=== PATIENT | male | born 1990 | race Caucasian/White ===

== ENCOUNTER 2024-05-01 11:44 | Outpatient (AMB) | payer OTHER, SELFPAY ==
[2024-05-01 11:48] VITALS: BP 124/80; PULSE 48; O2SAT 99; BMI 35.1
--- NOTE | 2024-05-01 11:48 | MHC.PC.OV ---
Vital Signs 05/01/24 11:48 Height 5 ft 9 in Weight 238 lb BMI 35.1 BP 124/80 Blood Pressure Location Lt brachial Position Sitting Pulse 48 L Pulse Source Pulse Oximeter Pulse Oximetry (%) 99 Oxygen Delivery Method Room Air Intake Visit Reasons: Rash Intake Note: Pt is here today for a sick visit. Pt c/o rash on his legs. Pt states that he has been having the rash for a while now and it goes away and comes back. Allergies Penicillins Allergy (Mild, Unverified 05/01/24 12:07) UNK penicillin V Allergy (Unknown, Verified 05/01/24 12:07) angioedema seafood/shellfish Allergy (Unknown, Uncoded 05/01/24 12:07) angioedema Medication List - Last Reconciled 05/01/24 by Janeth Schwarz MD No Known Home Meds Tobacco use date assessed: 05/01/24 Dental Screening Dental Screen Date: 05/01/24 Did you have a dental visit in the last 12 months?: Yes Did you have a dental problem in the last 6 months where you did not have access to dental care?: No Was dental information given to patient?: Patient has dentist HPI Rash HPI Details Patient presents for physical. He complains of chronic lower extremities rash for years. He was evaluated by machine plaster mixer in the past was prescribed steroids cream. patient reports itchy rash getting worse in the summer. He works for a [employer] but denies using any new chemicals or cosmetics. 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 1. Little interest or pleasure in doing things: nearly every day 2. Feeling down, depressed, or hopeless: more than half the days 3. Trouble falling or staying asleep, or sleeping too much: several days 4. Feeling tired or having little energy: several days 5. Poor appetite or overeating: not at all 6. Feeling bad about yourself - or that you are a failure or have let yourself or your family down: several days 7. Trouble concentrating on things, such as reading the newspaper or watching television: not at all 8. Moving or speaking so slowly that other people could have noticed. Or the opposite - being so fidgety or restless that you have been moving around a lot more than usual: not at all 9. Thoughts that you would be better off or of hurting yourself in some way: several days Total score: 9 Depression Screening Interpretation: Positive (Patient is established with a therapist) Depression Screening Follow-up: Existing condition and In treatment Depression Screening Done: Yes Source: Developed by Drs. Ramón Thornton, Kanwal Marcano, Rome Taylor and colleagues, with an educational wen from [employer]. Thrive Questionnaire Date Thrive assessed: 05/01/24 I am a: Patient What is your living situation today?: I have a steady place to live Within the past 12 months, did the food you bought not last and you didn't have the money to get more?: I choose not to answer this question Within the past 12 months, did you worry whether your food would run out before you got money to buy more?: I choose not to answer this question Do you have trouble paying for medicines?: No Do you have trouble getting transportation to medical appointments?: No Do you have trouble paying your heating and electricity bill?: No Do you have trouble taking care of your child, family member or friend?: No Do you have trouble with day-to-day activities such as bathing, preparing meals, shopping, managing finances, etc.?: No Are you currently unemployed and looking for a job?: No Are you interested in more education?: No Please select the resources that you would like help with: Housing/Prison Currently or been in a relationship where the following occur: No concerns reported THRIVE Score: 0 AUDIT C Alcohol Use Questionnaire (AUDIT-C) 1. How often do you have a drink containing alcohol?: Monthly or less 2. How many drinks containing alcohol do you have on a typical day when you are drinking?: 1 or 2 3. How often do you have six or more drinks on one occasion?: Never Total Score: 1 ALAN-7 AMB Questionnaire ALAN-7 Date ALAN - 7 assessed: 05/01/24 Feeling nervous, anxious, or on edge: 0 = Not at all Not being able to stop or control worryin = Several days Worrying too much about different things: 1 = Several days Trouble relaxin = Several days Being so restless that it is hard to sit still: 0 = Not at all Becoming easily annoyed or irritable: 0 = Not at all Feeling afraid as if something awful might happen: 0 = Not at all Total ALAN-7 score (0-4 normal; 5-9 mild; 10-14 moderate; 15-21 severe): 3 Source: Developed by Drs. Ramón Thornton, Kanwal Marcano, Rome Taylor and colleagues, with an educational wen from [employer]. Review of Systems Const All systems reviewed & are unremarkable except as noted in HPI and below ENT Reports no additional complaints Card Reports no additional complaints Resp Reports no additional complaints GI Reports no additional complaints Reports no additional complaints Physical exam (Primary Care) Vital Signs: Last Vital Signs Pulse 48 L 05/01/24 11:48 BP 124/80 05/01/24 11:48 Pulse Ox 99 05/01/24 11:48 Oxygen Delivery Method Room Air 05/01/24 11:48 BMI result Body Mass Index 35.1 Tobacco/Smoking Status: Tobacco use Status Tobacco use date assessed 05/01/24 05/01/24 12:11 Patient Tobacco Use Status Never used Tobacco 05/01/24 11:48 e-Cigarette/Vaping Use Never Used 05/01/24 11:48 PHQ-9: PHQ-9 Score PHQ-9: Total score 9 05/01/24 13:10 Depression Screening Interpretation: Positive (Patient is established with a therapist) Depression Screening Follow-up: Existing condition and In treatment Thrive Assessment: Date of Thrive Assessment Date Thrive assessed 05/01/24 05/01/24 12:11 Currently or been in a relationship where the following occur: No concerns reported Const General: well developed HENMA Head: Yes normal to inspection Eyes General: appearance normal, both eyes and all related structures Resp Effort & Inspection: normal respiratory effort Auscultation: clear to auscultation bilaterally Cardio Rhythm: regular rhythm Heart sounds: S1 normal heart sound present and S2 normal heart sound present GI Inspection: Yes normal to inspection Palpation (GI): Soft to palpation Percussion: Yes normal to percussion Auscultation: normal bowel sounds Extrem Other: There is erythematous papular rash on both lower extremities with scarring and excoriation moore. Assessment and Plan Assessment & Plan (1) Eczema: Code(s): L30.9 - Dermatitis, unspecified Plan: Prednisone taper is prescribed patient was advised to start Zyrtec and will be referred to machine plaster mixer for evaluation (2) Annual physical exam: Code(s): Z00.00 - Encounter for general adult medical examination without abnormal findings Plan: Well-balanced diet regular physical activity discussed with the patient return for fasting blood work Orders: Orders Comprehensive [place]. Panel Fast Today L30.9 - Dermatitis, unspecified, Z00.00 - Encounter for general adult medical examination without abnormal findings Lipid Panel Today L30.9 - Dermatitis, unspecified, Z00.00 - Encounter for general adult medical examination without abnormal findings Complete Blood Count Auto Diff Today L30.9 - Dermatitis, unspecified, Z00.00 - Encounter for general adult medical examination without abnormal findings UA w Microscopic Today L30.9 - Dermatitis, unspecified, Z00.00 - Encounter for general adult medical examination without abnormal findings BARBARA Reflex Titer and Pattern Today L30.9 - Dermatitis, unspecified, Z00.00 - Encounter for general adult medical examination without abnormal findings Referrals Dermatology Referral L30.9 - Dermatitis, unspecified Medications: New prednisone Four tablets p.o. q.d. for 3 days then 3 tablets p.o. q.d. for 3 days then 2 tablets p.o. q.d. for 3 days then 1 tablet p.o. q.d. for 3 days 30 tabs 0RF Coding Level of Care Code Est Pt Prev Care 18-39y(70418) Diagnoses Eczema L30.9 Annual physical exam Z00.00
== END 2024-05-01 13:06 | disposition home or self-care (01) ==
PROVIDERS: PCP Internal Medicine; Visit Provider Internal Medicine
DX: L30.9 Dermatitis, unspecified (principal); Z00.00 Encounter for general adult medical examination without abnormal findings
CPT/HCPCS: 99395

== ENCOUNTER 2024-07-18 13:45 | Outpatient (AMB) | payer OTHER, SELFPAY ==
--- NOTE | 2024-07-18 15:12 | AM.OFFWIN_ITS ---
Intake Vital Signs 07/18/24 15:13 Height 5 ft 9 in Weight 240 lb BMI 35.4 BP 130/76 Blood Pressure Location Rt brachial Position Sitting Pulse 76 Pulse Source Pulse Oximeter Pulse Oximetry (%) 98 Oxygen Delivery Method Room Air Intake Visit Reasons: EP Back pain Intake Note: Patient here for lower back pain that started yesterday. Denies any injuries or lifting any heavy objects. Patient Tobacco Use Status: Never used Tobacco Allergies Penicillins Allergy (Mild, Unverified 07/18/24 15:13) UNK penicillin V Allergy (Unknown, Verified 07/18/24 15:13) angioedema seafood/shellfish Allergy (Unknown, Uncoded 07/18/24 15:13) angioedema Do you need a note to return to daycare/school/sports/work: Yes HPI HPI Comments History of Present Illness Details This is a 34-year-old male who presented to the walk-in clinic complaining of right-sided mid back pain x1 day. Patient denies any known trauma/injury; however, he does work in [employer] and is constantly lifting heavy objects. He denies any chest pain, shortness of breath, abdominal pain, nausea/vomiting/diarrhea, hematuria/dysuria, difficulty urinating, fecal/urinary incontinence/retention, or numbness/weakness/paresthesias of his extremities. 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 Patient Tobacco Use Status: Never used Tobacco e-Cigarette/Vaping Use: Never Used service: No Current occupational status: employed 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 Cognitive needs: No Hearing needs: No Vision needs: No Review of Systems Const All systems reviewed & are unremarkable except as noted in HPI and below Reports no additional complaints Eyes Reports no additional complaints ENT Reports no additional complaints Card Reports no additional complaints Resp Reports no additional complaints GI Reports no additional complaints Reports no additional complaints Musc Reports no additional complaints Skin/Breast Reports system reviewed and no additional complaints, except as documented Neuro Reports no additional complaints Psych Reports no additional complaints Endo Reports no additional complaints Dl/Lymph Reports no additional complaints Aller/Immun Reports no additional complaints Physical Exam Vital Signs: Last Vital Signs Pulse 76 07/18/24 15:13 BP 130/76 07/18/24 15:13 Pulse Ox 98 07/18/24 15:13 Oxygen Delivery Method Room Air 07/18/24 15:13 BMI result Body Mass Index 35.4 Const Other: Vital signs reviewed. Constitutional: Non-toxic appearing. No acute distress. Well-developed and well-nourished. HEENT: Normocephalic and atraumatic. Skin: Warm and dry. No rashes or lesions noted. Neck: Full and painless range of motion. No cervical lymphadenopathy. Cardio: Regular rate and rhythm. No murmurs, gallops, or rubs. No lower extremity edema. No JVD. Pulmonary: No respiratory distress. No accessory muscle usage. Clear to auscultation bilaterally without wheezing, crackles, or rhonchi. Gastrointestinal: Soft, nontender, and nondistended in all 4 quadrants. Normoactive bowel sounds in all 4 quadrants. Genitourinary: No CVA tenderness. Musculoskeletal: He has decreased lumbar flexion due to pain. He has palpable muscle spasm and mild tenderness to palpation of the right thoracic paraspinal musculature. There is no midline or spinous process tenderness to palpation. Negative straight leg raise test bilaterally. Neuro: Alert and oriented x4. Cranial nerves 2-12 grossly intact. No focal deficits appreciated. Psych: Normal mood and affect. Assessment & Plan Assessment & Plan (1) Paraspinal muscle spasm: Code(s): M62.830 - Muscle spasm of back Plan This is a 34-year-old male who presented to the walk-in clinic complaining of right-sided mid back pain x1 day. He denies any known trauma/injury but does work in [employer] so he is constantly lifting heavy objects. On physical examination, he has mild muscle spasm and tenderness to palpation of the thoracic paraspinal musculature. He has no red flag symptoms or red flag physical examination findings. He has no urinary symptoms such as dysuria, hematuria, or difficulty urinating and he has no CVA tenderness bilaterally. History and physical most consistent with a paraspinal muscular spasm. Recommended rest/activity modification, heat to the area, acetaminophen/ibuprofen for pain management as long as patient has no medical contraindications, and sent a prescription for p.o. cyclobenzaprine 10 mg 3 times daily as needed for muscle spasms. Patient was advised to proceed directly to the emergency room if he were to develop any red flag symptoms as detailed above. Patient verbalizes understanding and he is in agreement with the plan. Medications: New cyclobenzaprine 10 mg PO TID PRN 14 tabs 0RF muscle spasm Coding Level of Care Code Est Pt Level 3 (75681) Diagnoses Paraspinal muscle spasm M62.830
[2024-07-18 15:13] VITALS: BP 130/76; PULSE 76; O2SAT 98; BMI 35.4
== END 2024-07-18 15:37 | disposition home or self-care (01) ==
PROVIDERS: PCP Internal Medicine; Visit Provider Physician Assistant Medical
DX: M62.830 Muscle spasm of back (principal)

== ENCOUNTER → 2024-07-18 13:45 | Outpatient (BNVA) | payer OTHER, SELFPAY | PROVIDERS: PCP Internal Medicine ==

== ENCOUNTER 2025-02-11 17:25 | Emergency (ER) | payer OTHER, MEDICAID, SELFPAY ==
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
[2025-02-11 17:29] VITALS: BP 124/80; PULSE 65; O2SAT 97
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
[2025-02-11 17:40] VITALS: BP 108/59; PULSE 64; RESP 18; TEMP 37.2; O2SAT 98; BMI 34.9
[2025-02-11 18:51] VITALS: BP 108/59; PULSE 64; RESP 18; TEMP 37.2; O2SAT 98
--- OUTSIDE RECORDS SUMMARY | 2025-02-11 18:51 | XMS_ITS | Clinical Summary ---
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 Operator Name Role Phone Virginie Najera MD Primary Care Provider [phone] Social History Tobacco Use Types Packs/Day Years Used Date Smoking Tobacco: Never Smokeless Tobacco: Never Sex and Gender Information Value Date Recorded Sex Assigned at Not on file Legal Sex Male 3:01 AM EST Gender Identity Not on file Sexual Orientation Not on file Obstetrics History Plan of Treatment Health Maintenance Due Date Last Done Comments DTaP,Tdap,and Td Vaccines (1 - Tdap) 2007 Hepatitis B Vaccines (1 of 3 - 19+ 3-dose series) 2007 Cholesterol Screening (Lipid Panel) 09/10/2022 Depression Screening 09/10/2022 HIV Screening 09/10/2022 Hepatitis C Screening 09/10/2022 Social Influencers of Health Screening 09/10/2022 COVID-19 Vaccine (2023-2 5 season) 2024 Influenza Vaccine (Season Ended) 2025 HIB Vaccines Aged Out No longer eligi ble based on patient's age to complete this topic HPV Vaccines Aged Out No longer eligi ble based on patient's age to complete this topic Hepatitis A Vaccines Aged Out No long er eligible based on patient's age to complete this topic IPV Vaccines Aged Out No longer eligi ble based on patient's age to complete this topic MMR Vaccines Aged Out No longer eligi ble based on patient's age to complete this topic Meningococcal ACWY Vaccine Aged Out N o longer eligible based on patient's age to complete this topic Meningococcal B Vaccine Aged Out No l onger eligible based on patient's age to complete this topic Pneumococcal Vaccine: Pediat rics (0 to 5 Years) and At-Risk Patients (6 to 64 Years) Aged Out No longer eligible b ased on patient's age to complete this topic RSV Immunization Patients Un noemi 20 months Aged Out No longer eligible b ased on patient's age to complete this topic Varicella Vaccines Aged Out No longer eligible based on patient's age to complete this topic Care Teams Automatic Beading Lathe Operator Relationship Specialty Start Date End Date Virginie Najera MD [address] [place] [address] [address] [facility] [place] [address] PCP - General Internal Medicine 04/05/22
== END 2025-02-11 18:52 | disposition home or self-care (01) ==
PROVIDERS: Emergency Provider Emergency Medicine
DX: S39.012A Strain of muscle, fascia and tendon of lower back, initial encounter (principal); V43.52XA Car driver injured in collision with other type car in traffic accident, initial encounter; Y93.9 Activity, unspecified; Y92.410 Unspecified street and highway as the place of occurrence of the external cause; Y99.8 Other external cause status
CPT/HCPCS: 72100; 99282; 99283

== ENCOUNTER → 2025-02-11 17:43 | Outpatient (BNV) | payer OTHER, MEDICAID, SELFPAY | PROVIDERS: Emergency Provider Emergency Medicine; Visit Provider Radiology Diagnostic Radiology | DX: M54.50 Low back pain, unspecified (principal); V89.2XXA Person injured in unspecified motor-vehicle accident, traffic, initial encounter | CPT/HCPCS: 72100 ==